=== PATIENT | male | born 1985 | race African-American/Black ===

== ENCOUNTER 2019-06-26 14:34 | Emergency (ER) | payer OTHER ==
[~2019-06-26] VITALS: Ht 170.2 cm; Wt 56.7 kg
[2019-06-26 14:46] VITALS: BP 116/78
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
--- NOTE | 2019-06-26 15:44 | NUR ---
ED Nurse Note: PT REFUSED PAIN MEDICATION AND [facility] NOTIFIED.
[2019-06-26] MEDS ORDERED: Ketorolac 30mg Inj IM ONE (15:45)
[2019-06-26] MEDS ORDERED: ROBAXIN-500MG ORAL (15:47)
[2019-06-26] MEDS ORDERED: IBU800 MG PO (15:47)
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
[2019-06-26 15:51] VITALS: BP 122/75
--- NOTE | 2019-06-26 15:51 | NUR ---
ER DISCHARGE NOTE: Patient is cleared to be discharged per PA, pt is aox4, on room air, with stable vital signs. pt was given dc and prescription instructions, pt was able to verbalize understanding, pt id band removed. pt is able to ambulate with steady gait. pt took all belongings.
== END 2019-06-26 15:51 | disposition home or self-care (01) ==
LOC: EMR 15:19
DX: S33.5XXA Sprain of ligaments of lumbar spine, initial encounter (principal); V43.62XA Car passenger injured in collision with other type car in traffic accident, initial encounter; Y92.410 Unspecified street and highway as the place of occurrence of the external cause
CPT/HCPCS: 72020; Z7502; 99283